=== PATIENT | male | born 1965 | race Caucasian/White ===

== ENCOUNTER 2022-02-15 10:05 | Inpatient (IN) | payer OTHER ==
[2022-02-15 11:25] VITALS: BMI 22.4
[2022-02-15] MEDS ORDERED: MAG HYDROX/AL HYDROX/SIMETH 30 ML UNIT-DOSE CUP PO PRN (13:06)
[2022-02-15] MEDS ORDERED: guaiFENesin 200 MG/10 ML 10 ML UNIT-DOSE CUPS PO PRN (13:06)
[2022-02-15] MEDS ORDERED: MAGNESIUM CITRATE 300 ML BOTTLE PO PRN (13:06)
[2022-02-15] MEDS ORDERED: P-EPHED 60MG/TRIPROLIDI 2.5MG TABLET PO PRN (13:06)
[2022-02-15] MEDS ORDERED: NICOTINE POLACRILEX 2 MG GUM BC PRN (13:06)
[2022-02-15] MEDS ORDERED: LOPERAMIDE HCL 2 MG CAPSULE PO PRN (13:06)
[2022-02-15] MEDS ORDERED: MAGNESIUM HYDROX 2400MG/30ML ORAL SUSPENSION 30 ML CUP PO PRN (13:06)
[2022-02-15] MEDS ORDERED: FAMOTIDINE 20 MG TABLET PO SCH (13:15)
[2022-02-15] MEDS ORDERED: PRENATAL VITAMINS W/ FOLIC ACID TABLET (FP) PO SCH (13:15)
[2022-02-15] MEDS ORDERED: BUPRENORPHINE/NALOXONE 8 MG/2 MG FILM PACKET SL SCH (13:15)
[2022-02-15] MEDS ORDERED: hydrOXYzine PAMOATE 25 MG CAPSULE (FP) PO SCH (14:00)
[2022-02-15] MEDS ORDERED: GABAPENTIN 400 MG CAPSULE PO SCH (14:00)
[2022-02-15 16:18] LABS: ALBUMIN 3.7 g/dl (3.4-5.0); CALCIUM 9.3 mg/dL (8.5-10.1)
[2022-02-15 16:19] LABS: BLOOD UREA NITROGEN 18.6 mg/dL (7-18)
[2022-02-15 16:21] LABS: HEMOGLOBIN 12.1 GM/dL (11.7-16.9); MCH 31.5 pg (25.7-33.7); MCHC 33.7 g/dl (32.0-35.9); MEAN CELL VOLUME 93.5 fl (80-96); MEAN PLT VOLUME 7.4 fl (7.5-11.1); PLATELET COUNT 266 10^3/uL (134-434); RBC 3.85 M/mm3 (4.00-5.60); RDW 14.3 % (11.9-15.9); WHITE BLOOD COUNT 5.7 K/mm3 (4.0-10.0)
[2022-02-15 16:23] LABS: BILIRUBIN,TOTAL 0.2 mg/dL (0.2-1); TOT PROT 6.6 g/dl (6.4-8.2)
[2022-02-15] MEDS: FAMOTIDINE 20 MG TABLET PO SCH (20:12)
[2022-02-15] MEDS: GABAPENTIN 400 MG CAPSULE PO SCH ×2 (20:12→21:11)
[2022-02-15] MEDS: hydrOXYzine PAMOATE 25 MG CAPSULE (FP) PO SCH ×2 (20:13→21:11)
[2022-02-15] MEDS: PRENATAL VITAMINS W/ FOLIC ACID TABLET (FP) PO SCH (20:13)
[2022-02-15] MEDS ORDERED: TUBERCULIN PPD 5 TU/0.1ML VIAL ID ONE (21:00)
[2022-02-15] MEDS: BUPRENORPHINE/NALOXONE 8 MG/2 MG FILM PACKET SL SCH (21:11)
[2022-02-15] MEDS: MELATONIN 5 MG TABLETS PO SCH (21:11)
[2022-02-15] MEDS: THIAMINE HCL 100 MG TABLET (FP) PO SCH (21:11)
[2022-02-15] MEDS ORDERED: PRAZOSIN HCL 1 MG CAPSULE PO SCH (22:00)
[2022-02-16] MEDS: GABAPENTIN 400 MG CAPSULE PO SCH ×3 (06:21→21:07)
[2022-02-16] MEDS: hydrOXYzine PAMOATE 25 MG CAPSULE (FP) PO SCH ×5 (06:21→22:12)
[2022-02-16] MEDS: BUPRENORPHINE/NALOXONE 8 MG/2 MG FILM PACKET SL SCH ×2 (09:56→21:06)
[2022-02-16] MEDS: PRENATAL VITAMINS W/ FOLIC ACID TABLET (FP) PO SCH (09:56)
[2022-02-16] MEDS: FAMOTIDINE 20 MG TABLET PO SCH (09:56)
[2022-02-16 11:32] LABS: EPI CELLS 24 /uL (0-25.1); HYALINE CASTS 7 /uL (0-3.1); PH,URINE 6.5 (5.0-8.0); URINE APPEARANCE CLEAR; URINE BACTERIA 90 /uL (0-1359); URINE BILIRUBIN NEGATIVE (NEGATIVE); URINE COLOR YELLOW; URINE GLUCOSE (UA) NEGATIVE (NEGATIVE); URINE KETONE NEGATIVE (NEGATIVE); URINE LEUK ESTERASE TRACE (NEGATIVE); URINE NITRITE NEGATIVE (NEGATIVE); URINE PROTEIN NEGATIVE (NEGATIVE); URINE RBC 4 /uL (0-23.9); URINE WBC 12 /uL (0-25.8)
[2022-02-16] MEDS: MIRTAZAPINE 15 MG TABLET (FP) PO SCH (18:23)
[2022-02-16] MEDS: PRAZOSIN HCL 1 MG CAPSULE PO SCH (21:07)
[2022-02-16] MEDS: MELATONIN 5 MG TABLETS PO SCH (21:07)
[2022-02-16] MEDS: busPIRone HCL 10 MG TABLET (FP) PO SCH (21:08)
[2022-02-16] MEDS: BACLOFEN 10 MG TABLET (FP) PO PRN (21:09)
[2022-02-16] MEDS: THIAMINE HCL 100 MG TABLET (FP) PO SCH (22:12)
[2022-02-17] MEDS: hydrOXYzine PAMOATE 25 MG CAPSULE (FP) PO SCH ×5 (06:48→21:14)
[2022-02-17] MEDS: GABAPENTIN 400 MG CAPSULE PO SCH ×3 (06:48→21:14)
[2022-02-17] MEDS ORDERED: DULoxetine HCL 30 MG CAPSULE.DR PO SCH (10:00)
[2022-02-17] MEDS: busPIRone HCL 10 MG TABLET (FP) PO SCH ×2 (10:07→21:13)
[2022-02-17] MEDS: PRENATAL VITAMINS W/ FOLIC ACID TABLET (FP) PO SCH (10:07)
[2022-02-17] MEDS: FAMOTIDINE 20 MG TABLET PO SCH (10:07)
[2022-02-17] MEDS: BUPRENORPHINE/NALOXONE 8 MG/2 MG FILM PACKET SL SCH ×2 (10:09→21:15)
[2022-02-17] MEDS: BACLOFEN 10 MG TABLET (FP) PO PRN (10:10)
[2022-02-17] MEDS ORDERED: DULoxetine HCL 60 MG CAPSULE.DR PO SCH (10:11)
[2022-02-17] MEDS: NICOTINE 10 MG CARTRIDGE (INHALER) IH PRN ×2 (10:19→13:19)
[2022-02-17] MEDS: POTASSIUM CHLORIDE ORAL LIQUID 20 MEQ/15 ML PO SCH ×2 (11:40→21:14)
[2022-02-17] MEDS: MIRTAZAPINE 15 MG TABLET (FP) PO SCH (18:04)
[2022-02-17] MEDS: PRAZOSIN HCL 1 MG CAPSULE PO SCH (21:14)
[2022-02-17] MEDS: MELATONIN 5 MG TABLETS PO SCH (21:14)
[2022-02-17] MEDS: THIAMINE HCL 100 MG TABLET (FP) PO SCH (21:15)
[2022-02-18] MEDS: hydrOXYzine PAMOATE 25 MG CAPSULE (FP) PO SCH ×5 (06:59→21:38)
[2022-02-18] MEDS: GABAPENTIN 400 MG CAPSULE PO SCH ×3 (06:59→21:38)
[2022-02-18] MEDS: NICOTINE 10 MG CARTRIDGE (INHALER) IH PRN ×2 (06:59→13:05)
[2022-02-18] MEDS: FAMOTIDINE 20 MG TABLET PO SCH (11:03)
[2022-02-18] MEDS: PRENATAL VITAMINS W/ FOLIC ACID TABLET (FP) PO SCH (11:04)
[2022-02-18] MEDS: BUPRENORPHINE/NALOXONE 8 MG/2 MG FILM PACKET SL SCH ×2 (11:04→21:40)
[2022-02-18] MEDS: busPIRone HCL 10 MG TABLET (FP) PO SCH ×2 (11:04→21:38)
[2022-02-18] MEDS: DULoxetine HCL 60 MG CAPSULE.DR PO SCH (11:04)
[2022-02-18] MEDS: POTASSIUM CHLORIDE ORAL LIQUID 20 MEQ/15 ML PO SCH ×2 (11:05→21:39)
[2022-02-18] MEDS: MIRTAZAPINE 15 MG TABLET (FP) PO SCH (18:57)
[2022-02-18] MEDS: MELATONIN 5 MG TABLETS PO SCH (21:39)
[2022-02-18] MEDS: PRAZOSIN HCL 1 MG CAPSULE PO SCH (21:40)
[2022-02-18] MEDS: THIAMINE HCL 100 MG TABLET (FP) PO SCH (21:40)
[2022-02-19] MEDS: GABAPENTIN 400 MG CAPSULE PO SCH ×3 (06:27→21:07)
[2022-02-19] MEDS: hydrOXYzine PAMOATE 25 MG CAPSULE (FP) PO SCH ×5 (06:27→21:07)
[2022-02-19] MEDS: BUPRENORPHINE/NALOXONE 8 MG/2 MG FILM PACKET SL SCH ×2 (10:23→21:06)
[2022-02-19] MEDS: busPIRone HCL 10 MG TABLET (FP) PO SCH ×2 (10:23→21:07)
[2022-02-19] MEDS: FAMOTIDINE 20 MG TABLET PO SCH (10:24)
[2022-02-19] MEDS: DULoxetine HCL 60 MG CAPSULE.DR PO SCH (10:24)
[2022-02-19] MEDS: PRENATAL VITAMINS W/ FOLIC ACID TABLET (FP) PO SCH (10:24)
[2022-02-19] MEDS: MIRTAZAPINE 15 MG TABLET (FP) PO SCH (17:04)
[2022-02-19] MEDS: THIAMINE HCL 100 MG TABLET (FP) PO SCH (21:07)
[2022-02-19] MEDS: MELATONIN 5 MG TABLETS PO SCH (21:07)
[2022-02-19] MEDS: PRAZOSIN HCL 1 MG CAPSULE PO SCH (21:08)
[2022-02-20] MEDS: hydrOXYzine PAMOATE 25 MG CAPSULE (FP) PO SCH ×5 (06:54→21:19)
[2022-02-20] MEDS: GABAPENTIN 400 MG CAPSULE PO SCH ×3 (06:54→21:20)
[2022-02-20] MEDS: BUPRENORPHINE/NALOXONE 8 MG/2 MG FILM PACKET SL SCH ×2 (10:29→21:20)
[2022-02-20] MEDS: busPIRone HCL 10 MG TABLET (FP) PO SCH ×2 (10:29→21:20)
[2022-02-20] MEDS: FAMOTIDINE 20 MG TABLET PO SCH (10:29)
[2022-02-20] MEDS: PRENATAL VITAMINS W/ FOLIC ACID TABLET (FP) PO SCH (10:29)
[2022-02-20] MEDS: DULoxetine HCL 60 MG CAPSULE.DR PO SCH (10:29)
[2022-02-20] MEDS: NICOTINE 10 MG CARTRIDGE (INHALER) IH PRN ×2 (10:30→21:21)
[2022-02-20] MEDS: MIRTAZAPINE 15 MG TABLET (FP) PO SCH (17:44)
[2022-02-20] MEDS: PRAZOSIN HCL 1 MG CAPSULE PO SCH (21:20)
[2022-02-20] MEDS: THIAMINE HCL 100 MG TABLET (FP) PO SCH (21:20)
[2022-02-20] MEDS: MELATONIN 5 MG TABLETS PO SCH (21:20)
[2022-02-21] MEDS: GABAPENTIN 400 MG CAPSULE PO SCH ×3 (07:06→21:14)
[2022-02-21] MEDS: hydrOXYzine PAMOATE 25 MG CAPSULE (FP) PO SCH ×5 (07:06→21:14)
[2022-02-21] MEDS: BUPRENORPHINE/NALOXONE 8 MG/2 MG FILM PACKET SL SCH ×2 (10:03→21:14)
[2022-02-21] MEDS: DULoxetine HCL 60 MG CAPSULE.DR PO SCH (10:04)
[2022-02-21] MEDS: FAMOTIDINE 20 MG TABLET PO SCH (10:05)
[2022-02-21] MEDS: busPIRone HCL 10 MG TABLET (FP) PO SCH ×2 (10:05→21:14)
[2022-02-21] MEDS: NICOTINE 10 MG CARTRIDGE (INHALER) IH PRN ×3 (10:05→21:15)
[2022-02-21] MEDS: PRENATAL VITAMINS W/ FOLIC ACID TABLET (FP) PO SCH (10:05)
[2022-02-21] MEDS ORDERED: COLLOIDAL OATMEAL 1 BAR EACH TP PRN (10:36)
[2022-02-21] MEDS: MIRTAZAPINE 15 MG TABLET (FP) PO SCH (17:30)
[2022-02-21] MEDS: THIAMINE HCL 100 MG TABLET (FP) PO SCH (21:13)
[2022-02-21] MEDS: PRAZOSIN HCL 1 MG CAPSULE PO SCH (21:14)
[2022-02-21] MEDS: MELATONIN 5 MG TABLETS PO SCH (21:14)
[2022-02-22] MEDS: hydrOXYzine PAMOATE 25 MG CAPSULE (FP) PO SCH ×5 (06:54→23:35)
[2022-02-22] MEDS: GABAPENTIN 400 MG CAPSULE PO SCH ×3 (06:54→23:35)
[2022-02-22] MEDS: DULoxetine HCL 60 MG CAPSULE.DR PO SCH (09:53)
[2022-02-22] MEDS: busPIRone HCL 10 MG TABLET (FP) PO SCH ×2 (09:53→23:34)
[2022-02-22] MEDS: BUPRENORPHINE/NALOXONE 8 MG/2 MG FILM PACKET SL SCH ×2 (09:54→23:35)
[2022-02-22] MEDS: FAMOTIDINE 20 MG TABLET PO SCH (09:54)
[2022-02-22] MEDS: PRENATAL VITAMINS W/ FOLIC ACID TABLET (FP) PO SCH (09:54)
[2022-02-22] MEDS: NICOTINE 10 MG CARTRIDGE (INHALER) IH PRN (19:50)
[2022-02-22] MEDS: MIRTAZAPINE 15 MG TABLET (FP) PO SCH (20:52)
[2022-02-22] MEDS: MELATONIN 5 MG TABLETS PO SCH (23:34)
[2022-02-22] MEDS: PRAZOSIN HCL 1 MG CAPSULE PO SCH (23:35)
[2022-02-22] MEDS: THIAMINE HCL 100 MG TABLET (FP) PO SCH (23:35)
[2022-02-23] MEDS: hydrOXYzine PAMOATE 25 MG CAPSULE (FP) PO SCH ×5 (07:09→21:13)
[2022-02-23] MEDS: GABAPENTIN 400 MG CAPSULE PO SCH ×3 (07:09→21:13)
[2022-02-23] MEDS: FAMOTIDINE 20 MG TABLET PO SCH (09:59)
[2022-02-23] MEDS: NICOTINE 10 MG CARTRIDGE (INHALER) IH PRN ×3 (09:59→21:26)
[2022-02-23] MEDS: busPIRone HCL 10 MG TABLET (FP) PO SCH ×2 (10:00→21:14)
[2022-02-23] MEDS: BUPRENORPHINE/NALOXONE 8 MG/2 MG FILM PACKET SL SCH ×2 (10:00→21:15)
[2022-02-23] MEDS: PRENATAL VITAMINS W/ FOLIC ACID TABLET (FP) PO SCH (10:00)
[2022-02-23] MEDS: DULoxetine HCL 60 MG CAPSULE.DR PO SCH (10:00)
[2022-02-23] MEDS: MIRTAZAPINE 15 MG TABLET (FP) PO SCH (19:20)
[2022-02-23] MEDS: MELATONIN 5 MG TABLETS PO SCH (21:14)
[2022-02-23] MEDS: THIAMINE HCL 100 MG TABLET (FP) PO SCH (21:14)
[2022-02-23] MEDS: PRAZOSIN HCL 1 MG CAPSULE PO SCH (21:14)
[2022-02-24] MEDS: hydrOXYzine PAMOATE 25 MG CAPSULE (FP) PO SCH ×5 (06:04→21:03)
[2022-02-24] MEDS: GABAPENTIN 400 MG CAPSULE PO SCH ×3 (06:04→21:03)
[2022-02-24] MEDS: NICOTINE 10 MG CARTRIDGE (INHALER) IH PRN ×3 (06:19→17:08)
[2022-02-24] MEDS: FAMOTIDINE 20 MG TABLET PO SCH (10:31)
[2022-02-24] MEDS: PRENATAL VITAMINS W/ FOLIC ACID TABLET (FP) PO SCH (10:31)
[2022-02-24] MEDS: busPIRone HCL 10 MG TABLET (FP) PO SCH ×2 (10:31→21:04)
[2022-02-24] MEDS: BUPRENORPHINE/NALOXONE 8 MG/2 MG FILM PACKET SL SCH ×2 (10:31→21:05)
[2022-02-24] MEDS: IBUPROFEN 400 MG TABLET (FP) PO PRN ×2 (10:33→17:09)
[2022-02-24] MEDS: SULFAMETHOXAZOLE/TRIMETHOPRIM 800MG/160MG D.S. TABLET PO SCH ×2 (10:33→21:03)
[2022-02-24] MEDS: BACITRACIN 0.9 GM PACKET TP SCH ×2 (11:08→21:04)
[2022-02-24] MEDS: DULoxetine HCL 60 MG CAPSULE.DR PO SCH (11:08)
[2022-02-24] MEDS: MIRTAZAPINE 15 MG TABLET (FP) PO SCH (19:14)
[2022-02-24] MEDS: MELATONIN 5 MG TABLETS PO SCH (21:04)
[2022-02-24] MEDS: THIAMINE HCL 100 MG TABLET (FP) PO SCH (21:04)
[2022-02-24] MEDS: PRAZOSIN HCL 1 MG CAPSULE PO SCH (21:04)
[2022-02-25] MEDS: hydrOXYzine PAMOATE 25 MG CAPSULE (FP) PO SCH ×5 (06:23→21:01)
[2022-02-25] MEDS: GABAPENTIN 400 MG CAPSULE PO SCH ×3 (06:23→21:00)
[2022-02-25] MEDS: IBUPROFEN 400 MG TABLET (FP) PO PRN ×2 (06:25→13:55)
[2022-02-25] MEDS: NICOTINE 10 MG CARTRIDGE (INHALER) IH PRN ×3 (06:25→21:00)
[2022-02-25] MEDS: FAMOTIDINE 20 MG TABLET PO SCH (09:42)
[2022-02-25] MEDS: PRENATAL VITAMINS W/ FOLIC ACID TABLET (FP) PO SCH (09:42)
[2022-02-25] MEDS: busPIRone HCL 10 MG TABLET (FP) PO SCH ×2 (09:42→21:01)
[2022-02-25] MEDS: SULFAMETHOXAZOLE/TRIMETHOPRIM 800MG/160MG D.S. TABLET PO SCH ×2 (09:42→21:00)
[2022-02-25] MEDS: BACITRACIN 0.9 GM PACKET TP SCH ×2 (09:42→21:01)
[2022-02-25] MEDS: DULoxetine HCL 60 MG CAPSULE.DR PO SCH (09:43)
[2022-02-25] MEDS: BUPRENORPHINE/NALOXONE 8 MG/2 MG FILM PACKET SL SCH ×2 (09:43→21:01)
[2022-02-25] MEDS: ACETAMINOPHEN 325 MG TABLET (FP) PO PRN (09:45)
[2022-02-25] MEDS: MIRTAZAPINE 15 MG TABLET (FP) PO SCH (18:56)
[2022-02-25] MEDS: PRAZOSIN HCL 1 MG CAPSULE PO SCH (21:00)
[2022-02-25] MEDS: THIAMINE HCL 100 MG TABLET (FP) PO SCH (21:00)
[2022-02-25] MEDS: MELATONIN 5 MG TABLETS PO SCH (21:00)
[2022-02-26] MEDS: hydrOXYzine PAMOATE 25 MG CAPSULE (FP) PO SCH ×4 (06:24→18:54)
[2022-02-26] MEDS: NICOTINE 10 MG CARTRIDGE (INHALER) IH PRN ×2 (06:25→15:08)
[2022-02-26] MEDS: GABAPENTIN 400 MG CAPSULE PO SCH ×2 (06:25→15:07)
[2022-02-26] MEDS: IBUPROFEN 400 MG TABLET (FP) PO PRN (08:59)
[2022-02-26] MEDS: busPIRone HCL 10 MG TABLET (FP) PO SCH (09:01)
[2022-02-26] MEDS: PRENATAL VITAMINS W/ FOLIC ACID TABLET (FP) PO SCH (09:01)
[2022-02-26] MEDS: FAMOTIDINE 20 MG TABLET PO SCH (09:01)
[2022-02-26] MEDS: BACITRACIN 0.9 GM PACKET TP SCH (09:01)
[2022-02-26] MEDS: SULFAMETHOXAZOLE/TRIMETHOPRIM 800MG/160MG D.S. TABLET PO SCH (09:01)
[2022-02-26] MEDS: BUPRENORPHINE/NALOXONE 8 MG/2 MG FILM PACKET SL SCH (09:02)
[2022-02-26] MEDS: DULoxetine HCL 60 MG CAPSULE.DR PO SCH (09:02)
[2022-02-26] MEDS: ACETAMINOPHEN 325 MG TABLET (FP) PO PRN (15:54)
[2022-02-26 15:58] VITALS: RESP 18
[2022-02-26 17:59] VITALS: BP 115/71; PULSE 88; TEMP 96.9
[2022-02-26] MEDS: MIRTAZAPINE 15 MG TABLET (FP) PO SCH (18:54)
== END 2022-02-27 07:31 | disposition short-term general hospital (02) | DRG 773 ==
LOC: YASAS 10:05 → Y3W 16:42
PROVIDERS: ADMIT Allergy & Immunology; ATTEND Psychiatry & Neurology Pain Medicine
PROC: HZ2ZZZZ Detoxification Services for Substance Abuse Treatment (ICD-10-PCS; principal; 2022-02-15)
DX: F14.20 Cocaine dependence, uncomplicated (principal); F11.20 Opioid dependence, uncomplicated; F17.210 Nicotine dependence, cigarettes, uncomplicated; F41.9 Anxiety disorder, unspecified; F32.A Depression, unspecified; F43.10 Post-traumatic stress disorder, unspecified; M15.9 Polyosteoarthritis, unspecified; M54.50 Low back pain, unspecified; G89.29 Other chronic pain; R10.31 Right lower quadrant pain; R50.9 Fever, unspecified; R63.4 Abnormal weight loss; Z68.22 Body mass index [BMI] 22.0-22.9, adult; Z86.59 Personal history of other mental and behavioral disorders; Z88.0 Allergy status to penicillin; Z56.0 Unemployment, unspecified
CPT/HCPCS: 36415; 80053; 81003; 82947; 82962; 84132; 85027; 86780; 90832-95; C9803-CS; J0475; T1023; U0003; U0005

== ENCOUNTER 2022-02-26 18:42 | Inpatient (IN) | payer OTHER ==
[2022-02-26] MEDS ORDERED: LACTATED RINGERS SOLUTION 1000 ML INFUS.BAG IV ONE (19:07)
[2022-02-26] MEDS ORDERED: ACETAMINOPHEN 1000 MG/100 ML BAG IVPB ONE (19:07)
[2022-02-26] MEDS ORDERED: FAMOTIDINE 20 MG/50 ML IVPB 20 MG/50 ML MG IVPB ONE ×2 (19:07→19:48)
[2022-02-26] MEDS ORDERED: MAG HYDROX/AL HYDROX/SIMETH -MYLANTA- ORAL SUSPENSION PO ONE (19:07)
[2022-02-26] MEDS ORDERED: MAG HYDROX/AL HYDROX/SIMETH 30 ML UNIT-DOSE CUP ONE (19:48)
[2022-02-26] MEDS ORDERED: ACETAMINOPHEN INJECTION 100 ML IVPB ONE (19:48)
[2022-02-26 20:04] LABS: HEMATOCRIT 33.9 % (35.4-49); HEMOGLOBIN 11.7 GM/dL (11.7-16.9); MCHC 34.4 g/dl (32.0-35.9); MEAN CELL VOLUME 93.1 fl (80-96); MEAN PLT VOLUME 6.5 fl (7.5-11.1); PLATELET COUNT 226 10^3/uL (134-434); RBC 3.64 M/mm3 (4.00-5.60); RDW 14.9 % (11.9-15.9); WHITE BLOOD COUNT 4.5 K/mm3 (4.0-10.0)
[2022-02-26 20:10] LABS: INR 1.06 (0.83-1.09); PROTHROMBIN TIME (PATIENT) 12.2 SEC (9.7-13.0)
[2022-02-26 20:23] LABS: CALCIUM 8.6 mg/dL (8.5-10.1)
[2022-02-26 20:24] LABS: ALBUMIN 3.7 g/dl (3.4-5.0); BLOOD UREA NITROGEN 18.4 mg/dL (7-18)
[2022-02-26 20:27] LABS: CREATININE 1.2 mg/dL (0.55-1.3)
[2022-02-26 20:28] LABS: BILIRUBIN,TOTAL 0.5 mg/dL (0.2-1); TOT PROT 6.8 g/dl (6.4-8.2)
[2022-02-26 20:35] LABS: ANISOCYTOSIS 1+; MACROCYTOSIS 0
[2022-02-26 21:21] LABS: URINE APPEARANCE CLEAR; URINE BILIRUBIN NEGATIVE (NEGATIVE); URINE COLOR YELLOW; URINE GLUCOSE (UA) NEGATIVE (NEGATIVE); URINE KETONE NEGATIVE (NEGATIVE); URINE LEUK ESTERASE NEGATIVE (NEGATIVE); URINE NITRITE NEGATIVE (NEGATIVE); URINE PROTEIN NEGATIVE (NEGATIVE); URINE UROBILINOGEN 0.2 mg/dL (0.2-1.0)
[2022-02-26] MEDS ORDERED: CEFTRIAXONE 1 GM in DEXTROSE 5%-WATER - 100 ML IVPB ONE (23:38)
[2022-02-26] MEDS ORDERED: BUPRENORPHINE/NALOXONE 8 MG/2 MG FILM PACKET SL ONE (23:56)
[2022-02-27] MEDS ORDERED: BUPRENORPHINE/NALOXONE 8 MG/2 MG FILM PACKET ONE (00:18)
[2022-02-27] MEDS ORDERED: LACTATED RINGERS SOLUTION 1,000 ML IV SCH ×2 (00:30→10:00)
[2022-02-27] MEDS ORDERED: CEFTRIAXONE 1 GM/50 ML BAG ONE (01:49)
[2022-02-27] MEDS ORDERED: ACETAMINOPHEN 1000 MG/100 ML BAG IVPB PRN ×3 (02:00→11:52)
[2022-02-27 08:06] VITALS: BMI 23.8
[2022-02-27] MEDS ORDERED: PROPOFOL 40 ML ONE (09:03)
[2022-02-27] MEDS ORDERED: ROCURONIUM BROMIDE 50 MG/5 ML SYRINGE ONE (09:03)
[2022-02-27] MEDS ORDERED: SUCCINYLCHOLINE CHLORIDE 200 MG/10 ML SYRINGE ONE (09:03)
[2022-02-27] MEDS ORDERED: MIDAZOLAM HCL 2 MG/2 ML SINGLE DOSE VIAL ONE (09:04)
[2022-02-27 09:29] LABS: INR 1.15 (0.83-1.09); PROTHROMBIN TIME (PATIENT) 13.3 SEC (9.7-13.0)
[2022-02-27 09:32] LABS: HEMATOCRIT 34.4 % (35.4-49); HEMOGLOBIN 11.5 GM/dL (11.7-16.9); MCH 31.1 pg (25.7-33.7); MCHC 33.5 g/dl (32.0-35.9); MEAN CELL VOLUME 92.9 fl (80-96); MEAN PLT VOLUME 7.1 fl (7.5-11.1); PLATELET COUNT 220 10^3/uL (134-434); RDW 14.9 % (11.9-15.9); WHITE BLOOD COUNT 14.5 K/mm3 (4.0-10.0)
[2022-02-27] MEDS ORDERED: DESFLURANE GAS 240 ML BOTTLE IH ONE (09:36)
[2022-02-27] MEDS ORDERED: ONDANSETRON 4 MG/2 ML VIAL IVPUSH PRN ×2 (09:47→11:52)
[2022-02-27 09:50] LABS: ALBUMIN 3.6 g/dl (3.4-5.0); BLOOD UREA NITROGEN 15.3 mg/dL (7-18); CALCIUM 8.7 mg/dL (8.5-10.1); MAGNESIUM 2.4 mg/dL (1.8-2.4)
[2022-02-27 09:53] LABS: CREATININE 1.1 mg/dL (0.55-1.3); PHOSPHOROUS 2.6 mg/dL (2.5-4.9); TOT PROT 6.8 g/dl (6.4-8.2)
[2022-02-27 09:54] LABS: BILIRUBIN,TOTAL 0.5 mg/dL (0.2-1)
[2022-02-27] MEDS ORDERED: LIDOCAINE 5% TOPICAL PATCH TP SCH (10:00)
[2022-02-27] MEDS ORDERED: BUPRENORPHINE/NALOXONE 8 MG/2 MG FILM PACKET SL SCH (10:00)
[2022-02-27] MEDS ORDERED: busPIRone HCL 10 MG TABLET (FP) PO SCH (10:00)
[2022-02-27] MEDS: LACTATED RINGERS SOLUTION 1,000 ML/1,000 ML INFUS.BAG IV SCH ×2 (10:00→15:59)
[2022-02-27] MEDS ORDERED: DULoxetine HCL 30 MG CAPSULE.DR PO SCH (10:00)
[2022-02-27] MEDS ORDERED: PHENYLEPHRINE HCL 10 MG/1 ML SINGLE DOSE VIAL ONE (10:04)
[2022-02-27] MEDS ORDERED: ACETAMINOPHEN INJECTION 100 ML IVPB ONE (10:32)
[2022-02-27] MEDS ORDERED: DEXAMETHASONE SOD PHOSPHATE 4 MG/1 ML VIAL ONE (10:37)
[2022-02-27] MEDS ORDERED: ONDANSETRON 4 MG/2 ML VIAL ONE (10:37)
[2022-02-27] MEDS ORDERED: BUPIVACAINE HCL/PF 0.5% (5MG/ML) 10 ML VIAL ONE (11:07)
[2022-02-27] MEDS ORDERED: KETOROLAC TROMETHAMINE 30 MG/1 ML VIAL ONE (11:09)
[2022-02-27] MEDS ORDERED: BUPIVACAINE HCL/PF 0.5% (5MG/ML) 10 ML VIAL IJ ONE (11:12)
[2022-02-27 11:13] LABS: ANISOCYTOSIS 0; HELMET CELLS 0; HOWELL-JOLLY BODIES 0; MACROCYTOSIS 0; OVALOCYTE 0; ROULEAU 0; SICKELED CELLS 0; TARGET CELLS 0; TEAR DROP CELLS 0; TOXIC GRANULATION 0
[2022-02-27] MEDS ORDERED: GLYCOPYRROLATE 0.2 MG/1 ML VIAL ONE (11:28)
[2022-02-27] MEDS ORDERED: NEOSTIGMINE METHYLSULFATE 0.5 MG/ML - 10 ML MDV ONE (11:28)
[2022-02-27] MEDS: MIRTAZAPINE 15 MG TABLET (FP) PO SCH (17:31)
[2022-02-27] MEDS ORDERED: MIRTAZAPINE 15 MG TABLET (FP) PO SCH ×2 (18:00→22:00)
[2022-02-27] MEDS: BUPRENORPHINE/NALOXONE 8 MG/2 MG FILM PACKET SL SCH (21:49)
[2022-02-27] MEDS ORDERED: LIDOCAINE PATCH REMOVAL MC SCH (22:00)
[2022-02-27] MEDS: LIDOCAINE PATCH REMOVAL MC SCH (22:00)
[2022-02-27] MEDS: busPIRone HCL 10 MG TABLET (FP) PO SCH (22:37)
[2022-02-28 09:57] LABS: HEMATOCRIT 28.6 % (35.4-49); HEMOGLOBIN 9.9 GM/dL (11.7-16.9); MCH 31.9 pg (25.7-33.7); MCHC 34.5 g/dl (32.0-35.9); MEAN CELL VOLUME 92.5 fl (80-96); MEAN PLT VOLUME 7.4 fl (7.5-11.1); PLATELET COUNT 186 10^3/uL (134-434); RBC 3.09 M/mm3 (4.00-5.60); RDW 15.1 % (11.9-15.9); WHITE BLOOD COUNT 10.7 K/mm3 (4.0-10.0)
[2022-02-28] MEDS: LIDOCAINE 5% TOPICAL PATCH TP SCH (10:45)
[2022-02-28] MEDS: BUPRENORPHINE/NALOXONE 8 MG/2 MG FILM PACKET SL SCH ×2 (10:45→22:23)
[2022-02-28] MEDS: DULoxetine HCL 30 MG CAPSULE.DR PO SCH (10:46)
[2022-02-28] MEDS: busPIRone HCL 10 MG TABLET (FP) PO SCH ×2 (10:47→22:24)
[2022-02-28 11:09] LABS: ALBUMIN 2.9 g/dl (3.4-5.0); BILIRUBIN,TOTAL 0.2 mg/dL (0.2-1); BLOOD UREA NITROGEN 12.6 mg/dL (7-18); CALCIUM 8.6 mg/dL (8.5-10.1); CREATININE 0.9 mg/dL (0.55-1.3); TOT PROT 5.9 g/dl (6.4-8.2)
[2022-02-28 11:28] LABS: ANISOCYTOSIS 0; MACROCYTOSIS 1+
[2022-02-28] MEDS: LACTATED RINGERS SOLUTION 1,000 ML/1,000 ML INFUS.BAG IV SCH (13:39)
[2022-02-28] MEDS: ACETAMINOPHEN 500 MG TABLET (FP) PO SCH ×2 (13:39→18:49)
[2022-02-28] MEDS: NICOTINE 21 MG/24 HOURS TOPICAL PATCH TD SCH (14:12)
[2022-02-28] MEDS: MIRTAZAPINE 15 MG TABLET (FP) PO SCH (18:49)
[2022-02-28] MEDS: LIDOCAINE PATCH REMOVAL MC SCH (22:24)
[2022-03-01] MEDS: ACETAMINOPHEN 500 MG TABLET (FP) PO SCH ×4 (00:42→18:39)
[2022-03-01] MEDS: DULoxetine HCL 30 MG CAPSULE.DR PO SCH (10:20)
[2022-03-01] MEDS: BUPRENORPHINE/NALOXONE 8 MG/2 MG FILM PACKET SL SCH ×2 (10:21→21:54)
[2022-03-01] MEDS: LIDOCAINE 5% TOPICAL PATCH TP SCH (10:21)
[2022-03-01] MEDS: NICOTINE 21 MG/24 HOURS TOPICAL PATCH TD SCH (10:23)
[2022-03-01] MEDS: busPIRone HCL 10 MG TABLET (FP) PO SCH ×2 (10:23→21:54)
[2022-03-01] MEDS: LACTATED RINGERS SOLUTION 1,000 ML/1,000 ML INFUS.BAG IV SCH (13:08)
[2022-03-01] MEDS: MIRTAZAPINE 15 MG TABLET (FP) PO SCH (18:55)
[2022-03-01] MEDS: LIDOCAINE PATCH REMOVAL MC SCH (21:54)
[2022-03-02] MEDS: ACETAMINOPHEN 500 MG TABLET (FP) PO SCH ×2 (01:45→05:30)
[2022-03-02] MEDS: BUPRENORPHINE/NALOXONE 8 MG/2 MG FILM PACKET SL SCH ×2 (10:09→22:29)
[2022-03-02] MEDS: DULoxetine HCL 30 MG CAPSULE.DR PO SCH (10:09)
[2022-03-02] MEDS: NICOTINE 21 MG/24 HOURS TOPICAL PATCH TD SCH (10:09)
[2022-03-02] MEDS: busPIRone HCL 10 MG TABLET (FP) PO SCH ×2 (10:10→22:38)
[2022-03-02] MEDS: LIDOCAINE 5% TOPICAL PATCH TP SCH (10:14)
[2022-03-02] MEDS ORDERED: ACETAMINOPHEN 325 MG TABLET (FP) PO PRN (14:04)
[2022-03-02] MEDS: MIRTAZAPINE 15 MG TABLET (FP) PO SCH (17:38)
[2022-03-02] MEDS: LIDOCAINE PATCH REMOVAL MC SCH (22:29)
[2022-03-03] MEDS: BUPRENORPHINE/NALOXONE 8 MG/2 MG FILM PACKET SL SCH ×2 (10:25→21:55)
[2022-03-03] MEDS: NICOTINE 21 MG/24 HOURS TOPICAL PATCH TD SCH (10:26)
[2022-03-03 10:27] LABS: BASO % 0.4 % (0-2.0); EOS % 5.2 % (0-4.5); HEMATOCRIT 35.4 % (35.4-49); HEMOGLOBIN 12.5 GM/dL (11.7-16.9); MCH 32.2 pg (25.7-33.7); MCHC 35.2 g/dl (32.0-35.9); MEAN CELL VOLUME 91.6 fl (80-96); MEAN PLT VOLUME 6.7 fl (7.5-11.1); MONO % 11.2 % (3.8-10.2); NEUT % 69.2 % (42.8-82.8); PLATELET COUNT 273 10^3/uL (134-434); RBC 3.87 M/mm3 (4.00-5.60); RDW 14.9 % (11.9-15.9); WHITE BLOOD COUNT 5.3 K/mm3 (4.0-10.0)
[2022-03-03] MEDS: DULoxetine HCL 30 MG CAPSULE.DR PO SCH (10:27)
[2022-03-03] MEDS: LIDOCAINE 5% TOPICAL PATCH TP SCH (10:27)
[2022-03-03] MEDS: busPIRone HCL 10 MG TABLET (FP) PO SCH ×2 (10:30→22:09)
[2022-03-03 10:41] LABS: ALBUMIN 3.1 g/dl (3.4-5.0); CALCIUM 8.8 mg/dL (8.5-10.1)
[2022-03-03 10:42] LABS: BLOOD UREA NITROGEN 14.2 mg/dL (7-18)
[2022-03-03 10:45] LABS: CREATININE 0.8 mg/dL (0.55-1.3)
[2022-03-03 10:46] LABS: BILIRUBIN,TOTAL 0.3 mg/dL (0.2-1); TOT PROT 6.4 g/dl (6.4-8.2)
[2022-03-03] MEDS: MIRTAZAPINE 15 MG TABLET (FP) PO SCH (17:58)
[2022-03-03] MEDS: LIDOCAINE PATCH REMOVAL MC SCH (21:37)
[2022-03-03 22:26] VITALS: BP 117/74; PULSE 72; RESP 20; TEMP 99.1
[2022-03-04] MEDS: BUPRENORPHINE/NALOXONE 8 MG/2 MG FILM PACKET SL SCH (09:20)
[2022-03-04] MEDS: DULoxetine HCL 30 MG CAPSULE.DR PO SCH (09:20)
[2022-03-04] MEDS: LIDOCAINE 5% TOPICAL PATCH TP SCH (09:21)
[2022-03-04] MEDS: NICOTINE 21 MG/24 HOURS TOPICAL PATCH TD SCH (09:21)
[2022-03-04] MEDS: busPIRone HCL 10 MG TABLET (FP) PO SCH (09:21)
[2022-03-04] MEDS ORDERED: metroNIDAZOLE 250 MG TABLET PO ONE (10:24)
[2022-03-04] MEDS ORDERED: metroNIDAZOLE 250 MG TABLET PO SCH (20:00)
== END 2022-03-04 11:45 | DRG 710 ==
LOC: JER 18:42 → JERBED 23:47 → J8W 02-27 06:53
PROVIDERS: ADMIT Hospitalist; ATTEND Nurse Practitioner Family
PROC: 0DTJ4ZZ Resection of Appendix, Percutaneous Endoscopic Approach (ICD-10-PCS; principal; 2022-02-27 09:00)
DX: A41.4 Sepsis due to anaerobes (principal); F11.20 Opioid dependence, uncomplicated; F14.10 Cocaine abuse, uncomplicated; F32.A Depression, unspecified; K35.891 Other acute appendicitis without perforation, with gangrene; F19.10 Other psychoactive substance abuse, uncomplicated; F17.210 Nicotine dependence, cigarettes, uncomplicated
CPT/HCPCS: 0241U-QW; 36415; 71045-TC-FY; 74176-TC; 74177-TC; 80053; 81003; 83605; 83690; 83735; 84100; 85025; 85610; 85730; 86850; 86900; 86901; 87040; 87076; 87086; 88304-TC; 93005; 93010; 93306-TC; 94010; 94760; 99285-25; Q9967

== ENCOUNTER 2022-03-04 14:08 | Inpatient (IN) | payer OTHER ==
[2022-03-04] MEDS ORDERED: MAG HYDROX/AL HYDROX/SIMETH 30 ML UNIT-DOSE CUP PO PRN (17:57)
[2022-03-04] MEDS ORDERED: MAGNESIUM CITRATE 300 ML BOTTLE PO PRN (17:57)
[2022-03-04] MEDS ORDERED: BENZOCAINE/MENTHOL (CHLORASEPTIC ) LOZENGE MM PRN (17:57)
[2022-03-04] MEDS ORDERED: ACETAMINOPHEN 325 MG TABLET (FP) PO PRN (17:57)
[2022-03-04] MEDS ORDERED: P-EPHED 60MG/TRIPROLIDI 2.5MG TABLET PO PRN (17:57)
[2022-03-04] MEDS ORDERED: guaiFENesin 200 MG/10 ML 10 ML UNIT-DOSE CUPS PO PRN (17:57)
[2022-03-04] MEDS ORDERED: MAGNESIUM HYDROX 2400MG/30ML ORAL SUSPENSION 30 ML CUP PO PRN (17:57)
[2022-03-04] MEDS ORDERED: LOPERAMIDE HCL 2 MG CAPSULE PO PRN (17:57)
[2022-03-04] MEDS: BUPRENORPHINE/NALOXONE 8 MG/2 MG FILM PACKET SL SCH (21:01)
[2022-03-04] MEDS: MELATONIN 5 MG TABLETS PO SCH (21:02)
[2022-03-04] MEDS: THIAMINE HCL 100 MG TABLET (FP) PO SCH (21:02)
[2022-03-04] MEDS: GABAPENTIN 400 MG CAPSULE PO SCH (21:02)
[2022-03-04] MEDS ORDERED: busPIRone HCL 10 MG TABLET (FP) PO ONE (22:00)
[2022-03-04] MEDS ORDERED: MIRTAZAPINE 15 MG TABLET (FP) PO ONE (22:00)
[2022-03-04] MEDS: metroNIDAZOLE 500 MG TABLET PO SCH (22:40)
[2022-03-05] MEDS: metroNIDAZOLE 500 MG TABLET PO SCH ×3 (06:23→21:13)
[2022-03-05] MEDS: GABAPENTIN 400 MG CAPSULE PO SCH ×3 (06:23→21:13)
[2022-03-05] MEDS: NICOTINE 10 MG CARTRIDGE (INHALER) IH PRN ×3 (06:27→14:27)
[2022-03-05] MEDS: BUPRENORPHINE/NALOXONE 8 MG/2 MG FILM PACKET SL SCH ×2 (09:56→21:13)
[2022-03-05] MEDS: FAMOTIDINE 20 MG TABLET PO SCH (09:56)
[2022-03-05] MEDS: PRENATAL VITAMINS W/ FOLIC ACID TABLET (FP) PO SCH (09:56)
[2022-03-05] MEDS: DULoxetine HCL 60 MG CAPSULE.DR PO SCH (10:34)
[2022-03-05] MEDS: busPIRone HCL 10 MG TABLET (FP) PO SCH ×2 (10:35→21:13)
[2022-03-05] MEDS: PRAZOSIN HCL 1 MG CAPSULE PO SCH (21:12)
[2022-03-05] MEDS: MELATONIN 5 MG TABLETS PO SCH (21:13)
[2022-03-05] MEDS: THIAMINE HCL 100 MG TABLET (FP) PO SCH (21:13)
[2022-03-05] MEDS ORDERED: MIRTAZAPINE 15 MG TABLET (FP) PO SCH (22:00)
[2022-03-06] MEDS: GABAPENTIN 400 MG CAPSULE PO SCH ×3 (06:08→21:08)
[2022-03-06] MEDS: metroNIDAZOLE 500 MG TABLET PO SCH ×3 (06:08→21:09)
[2022-03-06] MEDS: NICOTINE 10 MG CARTRIDGE (INHALER) IH PRN ×2 (09:52→14:51)
[2022-03-06] MEDS: PRENATAL VITAMINS W/ FOLIC ACID TABLET (FP) PO SCH (09:53)
[2022-03-06] MEDS: busPIRone HCL 10 MG TABLET (FP) PO SCH ×2 (09:53→21:08)
[2022-03-06] MEDS: DULoxetine HCL 60 MG CAPSULE.DR PO SCH (09:53)
[2022-03-06] MEDS: FAMOTIDINE 20 MG TABLET PO SCH (09:53)
[2022-03-06] MEDS: BUPRENORPHINE/NALOXONE 8 MG/2 MG FILM PACKET SL SCH ×2 (09:54→21:10)
[2022-03-06] MEDS: IBUPROFEN 400 MG TABLET (FP) PO PRN (09:55)
[2022-03-06] MEDS: MIRTAZAPINE 15 MG TABLET (FP) PO SCH ×2 (19:51→21:11)
[2022-03-06] MEDS: PRAZOSIN HCL 1 MG CAPSULE PO SCH (21:09)
[2022-03-06] MEDS: THIAMINE HCL 100 MG TABLET (FP) PO SCH (21:10)
[2022-03-06] MEDS: MELATONIN 5 MG TABLETS PO SCH (21:10)
[2022-03-07] MEDS: metroNIDAZOLE 500 MG TABLET PO SCH ×3 (06:31→21:08)
[2022-03-07] MEDS: GABAPENTIN 400 MG CAPSULE PO SCH ×3 (06:31→21:08)
[2022-03-07] MEDS: NICOTINE 10 MG CARTRIDGE (INHALER) IH PRN ×4 (06:33→21:09)
[2022-03-07] MEDS: BUPRENORPHINE/NALOXONE 8 MG/2 MG FILM PACKET SL SCH ×2 (09:47→21:10)
[2022-03-07] MEDS: PRENATAL VITAMINS W/ FOLIC ACID TABLET (FP) PO SCH (09:48)
[2022-03-07] MEDS: FAMOTIDINE 20 MG TABLET PO SCH (09:48)
[2022-03-07] MEDS: busPIRone HCL 10 MG TABLET (FP) PO SCH ×2 (09:48→21:09)
[2022-03-07] MEDS: DULoxetine HCL 60 MG CAPSULE.DR PO SCH (09:49)
[2022-03-07] MEDS ORDERED: COLLOIDAL OATMEAL 1 BAR EACH TP PRN (12:13)
[2022-03-07] MEDS: BACITRACIN 0.9 GM PACKET TP SCH ×2 (15:07→21:09)
[2022-03-07] MEDS: MIRTAZAPINE 15 MG TABLET (FP) PO SCH (21:08)
[2022-03-07] MEDS: PRAZOSIN HCL 1 MG CAPSULE PO SCH (21:08)
[2022-03-07] MEDS: MELATONIN 5 MG TABLETS PO SCH (21:09)
[2022-03-07] MEDS: THIAMINE HCL 100 MG TABLET (FP) PO SCH (21:09)
[2022-03-08] MEDS: GABAPENTIN 400 MG CAPSULE PO SCH ×3 (06:27→21:16)
[2022-03-08] MEDS: metroNIDAZOLE 500 MG TABLET PO SCH ×3 (06:27→21:16)
[2022-03-08] MEDS: NICOTINE 10 MG CARTRIDGE (INHALER) IH PRN ×4 (06:28→21:16)
[2022-03-08] MEDS: PRENATAL VITAMINS W/ FOLIC ACID TABLET (FP) PO SCH (10:16)
[2022-03-08] MEDS: BUPRENORPHINE/NALOXONE 8 MG/2 MG FILM PACKET SL SCH ×2 (10:16→21:20)
[2022-03-08] MEDS: FAMOTIDINE 20 MG TABLET PO SCH (10:17)
[2022-03-08] MEDS: DULoxetine HCL 60 MG CAPSULE.DR PO SCH (10:17)
[2022-03-08] MEDS: busPIRone HCL 10 MG TABLET (FP) PO SCH ×2 (10:17→21:16)
[2022-03-08] MEDS: BACITRACIN 0.9 GM PACKET TP SCH ×2 (10:18→21:16)
[2022-03-08] MEDS: hydrOXYzine PAMOATE 25 MG CAPSULE (FP) PO PRN ×2 (10:34→21:19)
[2022-03-08] MEDS: PRAZOSIN HCL 1 MG CAPSULE PO SCH ×2 (21:16→21:35)
[2022-03-08] MEDS: MELATONIN 5 MG TABLETS PO SCH (21:16)
[2022-03-08] MEDS: THIAMINE HCL 100 MG TABLET (FP) PO SCH (21:16)
[2022-03-08] MEDS: MIRTAZAPINE 15 MG TABLET (FP) PO SCH (21:17)
[2022-03-09] MEDS: GABAPENTIN 400 MG CAPSULE PO SCH ×3 (06:25→21:12)
[2022-03-09] MEDS: NICOTINE 10 MG CARTRIDGE (INHALER) IH PRN ×3 (06:26→21:14)
[2022-03-09] MEDS: hydrOXYzine PAMOATE 25 MG CAPSULE (FP) PO PRN (06:26)
[2022-03-09] MEDS: metroNIDAZOLE 500 MG TABLET PO SCH ×3 (10:47→21:12)
[2022-03-09] MEDS: DULoxetine HCL 60 MG CAPSULE.DR PO SCH (10:48)
[2022-03-09] MEDS: busPIRone HCL 10 MG TABLET (FP) PO SCH ×2 (10:49→21:15)
[2022-03-09] MEDS: FAMOTIDINE 20 MG TABLET PO SCH (10:49)
[2022-03-09] MEDS: BUPRENORPHINE/NALOXONE 8 MG/2 MG FILM PACKET SL SCH ×2 (10:49→21:13)
[2022-03-09] MEDS: PRENATAL VITAMINS W/ FOLIC ACID TABLET (FP) PO SCH (10:50)
[2022-03-09] MEDS: BACITRACIN 0.9 GM PACKET TP SCH ×2 (10:50→21:13)
[2022-03-09] MEDS: THIAMINE HCL 100 MG TABLET (FP) PO SCH (21:11)
[2022-03-09] MEDS: MELATONIN 5 MG TABLETS PO SCH (21:11)
[2022-03-09] MEDS: MIRTAZAPINE 15 MG TABLET (FP) PO SCH (21:11)
[2022-03-09] MEDS: PRAZOSIN HCL 1 MG CAPSULE PO SCH (21:11)
[2022-03-10] MEDS: metroNIDAZOLE 500 MG TABLET PO SCH ×3 (06:30→21:51)
[2022-03-10] MEDS: GABAPENTIN 400 MG CAPSULE PO SCH ×3 (06:30→21:51)
[2022-03-10] MEDS: hydrOXYzine PAMOATE 25 MG CAPSULE (FP) PO PRN (06:30)
[2022-03-10] MEDS: BACITRACIN 0.9 GM PACKET TP SCH ×2 (09:41→21:53)
[2022-03-10] MEDS: DULoxetine HCL 60 MG CAPSULE.DR PO SCH (09:42)
[2022-03-10] MEDS: BUPRENORPHINE/NALOXONE 8 MG/2 MG FILM PACKET SL SCH ×2 (09:42→21:53)
[2022-03-10] MEDS: PRENATAL VITAMINS W/ FOLIC ACID TABLET (FP) PO SCH (09:42)
[2022-03-10] MEDS: FAMOTIDINE 20 MG TABLET PO SCH (09:42)
[2022-03-10] MEDS: busPIRone HCL 10 MG TABLET (FP) PO SCH ×2 (09:42→21:51)
[2022-03-10] MEDS: NICOTINE 10 MG CARTRIDGE (INHALER) IH PRN (09:44)
[2022-03-10] MEDS: MIRTAZAPINE 15 MG TABLET (FP) PO SCH (21:50)
[2022-03-10] MEDS: PRAZOSIN HCL 1 MG CAPSULE PO SCH (21:51)
[2022-03-10] MEDS: THIAMINE HCL 100 MG TABLET (FP) PO SCH (21:53)
[2022-03-10] MEDS: MELATONIN 5 MG TABLETS PO SCH (21:53)
[2022-03-11] MEDS: GABAPENTIN 400 MG CAPSULE PO SCH ×3 (06:44→21:07)
[2022-03-11] MEDS: hydrOXYzine PAMOATE 25 MG CAPSULE (FP) PO PRN (06:45)
[2022-03-11] MEDS: NICOTINE 10 MG CARTRIDGE (INHALER) IH PRN ×2 (06:45→13:17)
[2022-03-11] MEDS: metroNIDAZOLE 500 MG TABLET PO SCH ×2 (07:17→13:17)
[2022-03-11] MEDS: FAMOTIDINE 20 MG TABLET PO SCH (09:50)
[2022-03-11] MEDS: busPIRone HCL 10 MG TABLET (FP) PO SCH ×2 (09:50→21:07)
[2022-03-11] MEDS: BACITRACIN 0.9 GM PACKET TP SCH ×2 (09:50→21:08)
[2022-03-11] MEDS: DULoxetine HCL 60 MG CAPSULE.DR PO SCH (09:51)
[2022-03-11] MEDS: PRENATAL VITAMINS W/ FOLIC ACID TABLET (FP) PO SCH (09:53)
[2022-03-11] MEDS: BUPRENORPHINE/NALOXONE 8 MG/2 MG FILM PACKET SL SCH ×2 (10:27→21:07)
[2022-03-11] MEDS: MIRTAZAPINE 15 MG TABLET (FP) PO SCH (21:08)
[2022-03-11] MEDS: THIAMINE HCL 100 MG TABLET (FP) PO SCH (21:08)
[2022-03-11] MEDS: MELATONIN 5 MG TABLETS PO SCH (21:08)
[2022-03-11] MEDS: PRAZOSIN HCL 1 MG CAPSULE PO SCH (21:08)
[2022-03-12] MEDS: IBUPROFEN 400 MG TABLET (FP) PO PRN (02:43)
[2022-03-12] MEDS: GABAPENTIN 400 MG CAPSULE PO SCH ×3 (06:17→21:19)
[2022-03-12] MEDS: BUPRENORPHINE/NALOXONE 8 MG/2 MG FILM PACKET SL SCH ×2 (10:37→21:23)
[2022-03-12] MEDS: BACITRACIN 0.9 GM PACKET TP SCH ×2 (10:37→21:20)
[2022-03-12] MEDS: DULoxetine HCL 60 MG CAPSULE.DR PO SCH (10:37)
[2022-03-12] MEDS: PRENATAL VITAMINS W/ FOLIC ACID TABLET (FP) PO SCH (10:37)
[2022-03-12] MEDS: busPIRone HCL 10 MG TABLET (FP) PO SCH ×2 (10:38→21:19)
[2022-03-12] MEDS: NICOTINE 10 MG CARTRIDGE (INHALER) IH PRN ×2 (10:39→14:01)
[2022-03-12] MEDS: FAMOTIDINE 20 MG TABLET PO SCH (10:39)
[2022-03-12] MEDS: hydrOXYzine PAMOATE 25 MG CAPSULE (FP) PO PRN (10:39)
[2022-03-12] MEDS: THIAMINE HCL 100 MG TABLET (FP) PO SCH (21:19)
[2022-03-12] MEDS: MIRTAZAPINE 15 MG TABLET (FP) PO SCH (21:19)
[2022-03-12] MEDS: PRAZOSIN HCL 1 MG CAPSULE PO SCH (21:20)
[2022-03-12] MEDS: MELATONIN 5 MG TABLETS PO SCH (21:20)
[2022-03-13] MEDS: GABAPENTIN 400 MG CAPSULE PO SCH ×3 (06:21→21:21)
[2022-03-13] MEDS: NICOTINE 10 MG CARTRIDGE (INHALER) IH PRN ×3 (06:21→21:21)
[2022-03-13] MEDS: DULoxetine HCL 60 MG CAPSULE.DR PO SCH (10:39)
[2022-03-13] MEDS: PRENATAL VITAMINS W/ FOLIC ACID TABLET (FP) PO SCH (10:39)
[2022-03-13] MEDS: FAMOTIDINE 20 MG TABLET PO SCH (10:39)
[2022-03-13] MEDS: BUPRENORPHINE/NALOXONE 8 MG/2 MG FILM PACKET SL SCH ×2 (10:39→21:22)
[2022-03-13] MEDS: BACITRACIN 0.9 GM PACKET TP SCH ×2 (10:39→21:21)
[2022-03-13] MEDS: busPIRone HCL 10 MG TABLET (FP) PO SCH ×2 (10:39→21:21)
[2022-03-13] MEDS: hydrOXYzine PAMOATE 25 MG CAPSULE (FP) PO PRN (10:40)
[2022-03-13] MEDS: MELATONIN 5 MG TABLETS PO SCH (21:21)
[2022-03-13] MEDS: THIAMINE HCL 100 MG TABLET (FP) PO SCH (21:21)
[2022-03-13] MEDS: MIRTAZAPINE 15 MG TABLET (FP) PO SCH (21:21)
[2022-03-13] MEDS: PRAZOSIN HCL 1 MG CAPSULE PO SCH (21:22)
[2022-03-14] MEDS: NICOTINE 10 MG CARTRIDGE (INHALER) IH PRN ×3 (06:41→21:10)
[2022-03-14] MEDS: GABAPENTIN 400 MG CAPSULE PO SCH ×3 (06:41→21:08)
[2022-03-14] MEDS: FAMOTIDINE 20 MG TABLET PO SCH (10:05)
[2022-03-14] MEDS: DULoxetine HCL 60 MG CAPSULE.DR PO SCH (10:05)
[2022-03-14] MEDS: BUPRENORPHINE/NALOXONE 8 MG/2 MG FILM PACKET SL SCH ×2 (10:05→21:10)
[2022-03-14] MEDS: PRENATAL VITAMINS W/ FOLIC ACID TABLET (FP) PO SCH (10:05)
[2022-03-14] MEDS: busPIRone HCL 10 MG TABLET (FP) PO SCH ×2 (10:06→21:08)
[2022-03-14] MEDS: BACITRACIN 0.9 GM PACKET TP SCH ×2 (10:06→21:08)
[2022-03-14] MEDS: MIRTAZAPINE 15 MG TABLET (FP) PO SCH (21:08)
[2022-03-14] MEDS: MELATONIN 5 MG TABLETS PO SCH (21:09)
[2022-03-14] MEDS: PRAZOSIN HCL 1 MG CAPSULE PO SCH (21:09)
[2022-03-14] MEDS: THIAMINE HCL 100 MG TABLET (FP) PO SCH (21:09)
[2022-03-15] MEDS: GABAPENTIN 400 MG CAPSULE PO SCH (06:48)
[2022-03-15] MEDS: NICOTINE 10 MG CARTRIDGE (INHALER) IH PRN (06:48)
[2022-03-15 07:11] VITALS: RESP 18
[2022-03-15] MEDS: busPIRone HCL 10 MG TABLET (FP) PO SCH (09:20)
[2022-03-15] MEDS: BACITRACIN 0.9 GM PACKET TP SCH (09:20)
[2022-03-15] MEDS: BUPRENORPHINE/NALOXONE 8 MG/2 MG FILM PACKET SL SCH (09:21)
[2022-03-15] MEDS: FAMOTIDINE 20 MG TABLET PO SCH (09:21)
[2022-03-15] MEDS: PRENATAL VITAMINS W/ FOLIC ACID TABLET (FP) PO SCH (09:21)
[2022-03-15] MEDS: DULoxetine HCL 60 MG CAPSULE.DR PO SCH (09:21)
[2022-03-15 09:27] VITALS: BP 138/94; PULSE 63; TEMP 98.6
== END 2022-03-15 09:49 | disposition home or self-care (01) | DRG 772 ==
LOC: YASAS 14:08 → Y3W 15:10
PROVIDERS: ADMIT Allergy & Immunology; ATTEND Psychiatry & Neurology Pain Medicine
PROC: HZ42ZZZ Group Counseling for Substance Abuse Treatment, Cognitive-Behavioral (ICD-10-PCS; principal; 2022-03-04)
DX: F14.20 Cocaine dependence, uncomplicated (principal); F17.210 Nicotine dependence, cigarettes, uncomplicated; F19.24 Other psychoactive substance dependence with psychoactive substance-induced mood disorder; F19.282 Other psychoactive substance dependence with psychoactive substance-induced sleep disorder; F41.9 Anxiety disorder, unspecified; R10.13 Epigastric pain; R21 Rash and other nonspecific skin eruption; M54.59 Other low back pain; G89.29 Other chronic pain; M19.90 Unspecified osteoarthritis, unspecified site; Z88.0 Allergy status to penicillin; Z86.11 Personal history of tuberculosis; Z86.59 Personal history of other mental and behavioral disorders; Z56.0 Unemployment, unspecified

== ENCOUNTER 2022-03-12 03:35 | Emergency (ER) | payer OTHER ==
[2022-03-12 03:42] VITALS: BP 112/72; PULSE 84; RESP 18; TEMP 98; BMI 24.3
== END 2022-03-12 05:35 | disposition home or self-care (01) ==
LOC: JER 03:35
DX: R10.13 Epigastric pain (principal)
CPT/HCPCS: 99283-25; 99284-25

== ENCOUNTER 2023-03-15 09:36 | Emergency (ER) | payer OTHER ==
[2023-03-15 09:44] VITALS: BP 145/81; PULSE 93; RESP 18; TEMP 98.9; BMI 22.8
[2023-03-15] MEDS ORDERED: SODIUM CHLORIDE 1,000 ML IV STA (10:11)
[2023-03-15] MEDS ORDERED: ACETAMINOPHEN 1000 MG/100 ML BAG IVPB ONE (10:25)
[2023-03-15] MEDS ORDERED: ACETAMINOPHEN INJECTION 100 ML IVPB ONE (10:31)
== END 2023-03-15 10:48 | disposition left against medical advice (07) ==
LOC: JERFT 09:36
PROC: 3E033NZ Introduction of Analgesics, Hypnotics, Sedatives into Peripheral Vein, Percutaneous Approach (ICD-10-PCS; principal; 2023-03-15)
PROC: 3E0337Z Introduction of Electrolytic and Water Balance Substance into Peripheral Vein, Percutaneous Approach (ICD-10-PCS; 2023-03-15)
DX: R22.31 Localized swelling, mass and lump, right upper limb (principal); L03.113 Cellulitis of right upper limb
CPT/HCPCS: 96361; 96374; 99284-25